=== PATIENT | male | born 1945 | race Caucasian/White ===

== ENCOUNTER 2016-12-15 12:21 | Observation (INO) | payer OTHER, BC ==
--- NOTE | 2016-12-15 12:29 | CPEKG ---
Heart Rate: 92 RR Interval: 652 P-R Interval: 168 QRSD Interval: 96 QT Interval: 364 QTC Interval: 451 P [place]: 15 QRS [place]: 19 T Wave [place]: 51 EKG Severity - BORDERLINE ECG - EKG Impression: SINUS RHYTHM EKG Impression: BORDERLINE T WAVE ABNORMALITIES Electronically Signed By: Jenn Garcia 15-Dec-2016 13:35:25
[2016-12-15] MEDS ORDERED: ASPIRIN 81 MG CHEWABLE TAB PO ONE (12:55)
--- NOTE | 2016-12-15 12:58 | UCPHY ---
H & P Patient Type: New Chief Complaint Nursing Narrative: Pt. states left arm numbness/tingling intermittently since yesterday. C/O left ant cp today x2 episodes that feel like "pin prick or sharp" Denies pain currently, n/v/ or SOB. Time Seen by Provider: 12/15/16 12:55 HPI/ROS: CHIEF COMPLAINT: Chest History by patient HISTORY OF PRESENT ILLNESS: 71-year-old male with a history of hypertension and high cholesterol presents complaining of intermittent stabbing sharp chest pains radiating from the inside of his LEs chest outward which last less than a minute but also in association with left arm numbness. The symptoms have been going on for the last few days. They are nonexertional. It is not associated with any nausea, vomiting diaphoresis or shortness of breath. He denies any new leg pain or swelling. He has never had anything like this before. Patient was also worried about his blood pressure and he noticed today when he tried to take it with his home blood pressure cuff it says he had an irregular heart rate. He did not have any associated palpitations and his heart rate did not feel irregular to him. He brings with him a record of recent blood pressures that are all within normal limits with the highest being a systolic of 132. REVIEW OF SYSTEMS: As in HPI, and all other systems reviewed and are negative Source: Patient - Medical/Surgical History Hx Asthma: No Hx Chronic Respiratory Disease: No Hx Diabetes: No Hx Cardiac Disease: No Hx Renal Disease: No Hx Cirrhosis: No Hx Alcoholism: No Hx HIV/AIDS: No Hx Splenectomy or Spleen Trauma: No Other PMH: Med hx- Tachycardia?,cholesterol,htn. Surg-vasectomy - Family History Significant Family History: No pertinent family hx - Social History Smoking Status: Never smoked - Physical Exam Exam: General Appearance: Alert, [ ]. Eyes: Pupils equal and round no pallor or injection. ENT, Mouth: Mucous membranes moist. Respiratory: Normal, effort, There are no retractions, lungs are clear to auscultation. Cardiovascular: Regular rate and rhythm. Gastrointestinal: Abdomen is soft and nontender, no masses, bowel sounds normal. Neurological: Awake, alert and oriented x 3, no pronator drift, normal gait, no pronator drift Skin: Warm and dry, no rashes. Musculoskeletal: Neck is supple nontender. Extremities are symmetrical, full range of motion. There is trace pretibial pitting edema Psychiatric: Patient has normal affect, there is no agitation. Constitutional: Initial Vital Signs Temperature (C) 36.5 C 12/15/16 12:25 Heart Rate 89 12/15/16 12:25 Respiratory Rate 16 12/15/16 12:25 Blood Pressure 159/96 H 12/15/16 12:25 O2 Sat (%) 95 12/15/16 12:25 O2 Delivery Mode Room Air O2 (L/minute) 2 Allergies/Adverse Reactions: No Known Allergies Allergy (Verified 12/15/16 12:34) Home Medications: Medication Instructions Recorded Aspirin 81mg 03/07/10 HYDROCHLOROTHIAZIDE 03/07/10 Ramipril 03/07/10 Simvastatin 03/07/10 Medical Decision Making - Diagnostics EKG Interpretation: Normal sinus rhythm at a rate of 92 with normal axis, normal intervals and nonspecific T-wave flattening in the inferior lateral leads. There is no old EKG available for comparison. Impression: Abnormal EKG Imaging: I viewed and interpreted images myself ED Course/Re-evaluation: 71-year-old male with multiple cardiac risk factors presents with atypical chest pain and left arm numbness. ECG is abnormal although there is no evidence of acute GA or ischemia. First troponin is negative. Chest x-ray shows nothing acute. Patient was given aspirin in the emergency department. Although there is no evidence for acute GA, Given that his heart score is 4 and we cannot exclude cardiac causes the source of his symptoms, we will transfer him to [facility] for further evaluation and treatment. I discussed the case with Dr. Romero, the hospitalist professional poker player. - Data Points Laboratory Results: Laboratory Results 12/15/16 12:50 12/15/16 12:50 12/15/16 12/15/16 12:50 12:50 WBC 7.18 10^3/uL 10^3/uL (3.80-9.50) RBC 4.86 10^6/uL 10^6/uL (4.40-6.38) Hgb 15.7 g/dL g/dL (13.7-17.5) Hct 44.9 % % (40.0-51.0) MCV 92.4 fL fL (81.5-99.8) MCH 32.3 pg pg (27.9-34.1) MCHC 35.0 g/dL g/dL (32.4-36.7) RDW 13.3 % % (11.5-15.2) Plt Count 205 10^3/uL 10^3/uL (150-400) MPV 10.6 fL fL (8.7-11.7) Neut % (Auto) 69.8 % % (39.3-74.2) Lymph % (Auto) 17.8 % % (15.0-45.0) Kings % (Auto) 9.5 % % (4.5-13.0) Eos % (Auto) 1.5 % % (0.6-7.6) Baso % (Auto) 0.8 % % (0.3-1.7) Nucleat RBC Rel Count 0.0 % % (0.0-0.2) Absolute Neuts (auto) 5.01 10^3/uL 10^3/uL (1.70-6.50) Absolute Lymphs (auto) 1.28 10^3/uL 10^3/uL (1.00-3.00) Absolute Monos (auto) 0.68 10^3/uL 10^3/uL (0.30-0.80) Absolute Eos (auto) 0.11 10^3/uL 10^3/uL (0.03-0.40) Absolute Basos (auto) 0.06 10^3/uL 10^3/uL (0.02-0.10) Absolute Nucleated RBC 0.00 10^3/uL 10^3/uL (0-0.01) Immature Gran % 0.6 % % (0.0-1.1) Immature Gran # 0.04 10^3/uL 10^3/uL (0.00-0.10) Sodium 142 mEq/L mEq/L (134-144) Potassium 4.2 mEq/L mEq/L (3.5-5.2) Chloride 103 mEq/L mEq/L (97-110) Carbon Dioxide 24 mEq/l mEq/l (22-31) Anion Gap 15 mEq/L mEq/L (8-16) BUN 14 mg/dL mg/dL (7-23) Creatinine 0.8 mg/dL mg/dL (0.7-1.3) Estimated GFR > 60 Glucose 99 mg/dL mg/dL (70-100) Calcium 9.5 mg/dL mg/dL (8.5-10.4) Troponin I 0.030 ng/mL ng/mL (0-0.034) Medications Given: Discontinued Medications Aspirin (Aspirin) 324 mg PO EDNOW ONE Stop: 12/15/16 12:56 Last Admin: 12/15/16 13:02 Dose: 324 mg Departure - Departure Disposition: [facility] Inpatient Acute Clinical Impression: Chest pain in adult Condition: Good Referrals: Norris Maxwell MD [Primary Care Provider] - As per Instructions - PQRS PQRS Measurement: 134: Depression screening and followup, PRIME MD-PHQ2 (12 years and older) Over the last 2 weeks, how often have you been bothered by any of the following problems? 1. Feeling down, depressed, or hopeless? 2. Little interest or pleasure in doing things? [Patient answered no to both 1 and 2] . 130: Documentation of medications. [Unable to obtain meds due to] [patient did not know]. 226: Do you smoke? [No.] 47: 65 and older: Advanced care planning. Patient designates surrogate decision maker as [parent] [spouse] . 51: 18 years old and older with diagnosis of COPD, spirometry performance. [Patient has no history of COPD] 52: 18 years old and older with COPD and symptoms of COPD or FEV1<60% predicted prescribed a B Agonist. [Spirometry not performed; equipment not available.]
[2016-12-15 13:00] LABS: % IMMATURE GRANULYOCYTES 0.6 % (0.0-1.1); ABSOLUTE IMMATURE GRANULOCYTES 0.04 10^3/uL (0.00-0.10); ADD DIFF? NO; ADD MORPH? NO; ADD SCAN? NO; ATYPICAL LYMPHOCYTE FLAG 0 (0-99); FRAGMENT RBC FLAG 0 (0-99); HEMATOCRIT 44.9 % (40.0-51.0); HEMOGLOBIN 15.7 g/dL (13.7-17.5); LEFT SHIFT FLG 0 (0-99); LIPEMIA HEMOLYSIS FLAG 90 (0-99); MEAN CELL HEMOGLOBIN 32.3 pg (27.9-34.1); MEAN CELL VOLUME 92.4 fL (81.5-99.8); MEAN PLATELET VOLUME 10.6 fL (8.7-11.7); PLATELET CLUMPS FLAG 0 (0-99); PLATELET COUNT 205 10^3/uL (150-400); RED BLOOD CELL COUNT 4.86 10^6/uL (4.40-6.38); RED CELL DISTRIBUTION WIDTH 13.3 % (11.5-15.2)
[2016-12-15 13:06] LABS: ANION GAP 15 mEq/L (8-16); CALCIUM 9.5 mg/dL (8.5-10.4); CARBON DIOXIDE 24 mEq/l (22-31); CHLORIDE 103 mEq/L (97-110); CREATININE 0.8 mg/dL (0.7-1.3); GLOMERULAR FILTRATION RATE > 60; GLUCOSE 99 mg/dL (70-100); POTASSIUM 4.2 mEq/L (3.5-5.2); SODIUM 142 mEq/L (134-144)
[2016-12-15] MEDS ORDERED: ACETAMINOPHEN 325 MG TAB PO PRN (14:38)
[2016-12-15] MEDS ORDERED: NITROGLYCERIN 0.4 MG BTL SL PRN (14:38)
--- NOTE | 2016-12-15 15:15 | PDGENHP ---
History and Physical - Chief Complaint Acute chest pain - History of Present Illness PCP: Dr. Maxwell 71-year-old male presents with acute chest pain characterized as sharp and stabbing, located in the anterior left chest with onset of symptoms on the day prior to this presentation and duration reported as less than 1 minute and intermittent since that time. He has also had associated left upper extremity paresthesias. He reports that he consistently sleeps on his side and he may have slept on his left side last night. The paresthesias in his hand were alleviated by ringing his left arm out. The constellation of the symptoms were him and led to his presentation. He has recently re-initiated his treadmill routine ambulating at approximately 3.5 mph and he reports that he checked his heart rate and blood pressure at home and his heart rate was notably fast around 110 with a systolic blood pressure of 132. He denies any chest pain or shortness of breath while on the treadmill. He presented to urgent care and he is currently chest pain-free. He has received a full-dose aspirin. History Information - Allergies/Home Medication List Allergies/Adverse Reactions: No Known Allergies Allergy (Verified 12/15/16 12:34) Home Medications: Aspirin [Aspirin 81mg (*)] 81 mg PO DAILY@16 12/15/16 [Last Taken 12/15/16] Hydrochlorothiazide [HCTZ (*)] 25 mg PO DAILY@16 12/15/16 [Last Taken 12/14/16] Ramipril [Altace 5mg (*)] 5 mg PO DAILY@16 12/15/16 [Last Taken 12/14/16] Simvastatin 40 mg PO HS 12/15/16 [Last Taken 12/14/16] I have personally reviewed and updated: family history, medical history, social history, surgical history - Past Medical History hypertension, hyperlipidemia - Surgical History Additional surgical history: Vasectomy - Social History Smoking Status: Never smoked Alcohol Use: Occasionally Drug Use: None Additional social history: Physically active at baseline, regularly uses a treadmill Review of Systems ROS: 10pt was reviewed & negative except for what was stated in HPI & below Cardiac: Reports: chest pain Neurological: Reports: paresthesia Physical Exam Temp Pulse Resp BP Pulse Ox 36.8 C 81 18 125/86 H 97 12/15/16 14:00 12/15/16 14:00 12/15/16 14:00 12/15/16 14:00 12/15/16 14:00 Constitutional: no apparent distress, appears nourished, not in pain Eyes: PERRL, anicteric sclera, EOMI Ears, Nose, Mouth, Throat: moist mucous membranes, hearing normal, ears appear normal, no oral mucosal ulcers Cardiovascular: regular rate and rhythym, no murmur, rub, or gallop, No edema Respiratory: no respiratory distress, no rales or rhonchi, clear to auscultation Gastrointestinal: normoactive bowel sounds, soft, non-tender abdomen, no palpable masses Musculoskeletal: other (No tenderness to palpation over the left pectoralis muscle, full range of motion left shoulder without any pain, no tenderness over the sub a.c. on the left, no tenderness over the left ribs) Neurologic: AAOx3, sensation intact bilaterally, No weakness Psychiatric: interacting appropriately, not anxious, not encephalopathic, thought process linear Lab Data & Imaging Review 12/15/16 12:50 12/15/16 12:50 WBC 7.18 10^3/uL (3.80-9.50) 12/15/16 12:50 RBC 4.86 10^6/uL (4.40-6.38) 12/15/16 12:50 Hgb 15.7 g/dL (13.7-17.5) 12/15/16 12:50 Hct 44.9 % (40.0-51.0) 12/15/16 12:50 MCV 92.4 fL (81.5-99.8) 12/15/16 12:50 MCH 32.3 pg (27.9-34.1) 12/15/16 12:50 MCHC 35.0 g/dL (32.4-36.7) 12/15/16 12:50 RDW 13.3 % (11.5-15.2) 12/15/16 12:50 Plt Count 205 10^3/uL (150-400) 12/15/16 12:50 MPV 10.6 fL (8.7-11.7) 12/15/16 12:50 Neut % (Auto) 69.8 % (39.3-74.2) 12/15/16 12:50 Lymph % (Auto) 17.8 % (15.0-45.0) 12/15/16 12:50 [place] % (Auto) 9.5 % (4.5-13.0) 12/15/16 12:50 Eos % (Auto) 1.5 % (0.6-7.6) 12/15/16 12:50 Baso % (Auto) 0.8 % (0.3-1.7) 12/15/16 12:50 Nucleat RBC Rel Count 0.0 % (0.0-0.2) 12/15/16 12:50 Absolute Neuts (auto) 5.01 10^3/uL (1.70-6.50) 12/15/16 12:50 Absolute Lymphs (auto) 1.28 10^3/uL (1.00-3.00) 12/15/16 12:50 Absolute Monos (auto) 0.68 10^3/uL (0.30-0.80) 12/15/16 12:50 Absolute Eos (auto) 0.11 10^3/uL (0.03-0.40) 12/15/16 12:50 Absolute Basos (auto) 0.06 10^3/uL (0.02-0.10) 12/15/16 12:50 Absolute Nucleated RBC 0.00 10^3/uL (0-0.01) 12/15/16 12:50 Immature Gran % 0.6 % (0.0-1.1) 12/15/16 12:50 Immature Gran # 0.04 10^3/uL (0.00-0.10) 12/15/16 12:50 D-Dimer < 0.27 ug/mLFEU (0.00-0.50) 12/15/16 12:20 Sodium 142 mEq/L (134-144) 12/15/16 12:50 Potassium 4.2 mEq/L (3.5-5.2) 12/15/16 12:50 Chloride 103 mEq/L (97-110) 12/15/16 12:50 Carbon Dioxide 24 mEq/l (22-31) 12/15/16 12:50 Anion Gap 15 mEq/L (8-16) 12/15/16 12:50 BUN 14 mg/dL (7-23) 12/15/16 12:50 Creatinine 0.8 mg/dL (0.7-1.3) 12/15/16 12:50 Estimated GFR > 60 12/15/16 12:50 Glucose 99 mg/dL (70-100) 12/15/16 12:50 Calcium 9.5 mg/dL (8.5-10.4) 12/15/16 12:50 Troponin I 0.030 ng/mL (0-0.034) 12/15/16 12:50 Visualized and Interpreted Chest x-ray results: Yes Chest X-Ray results: other (No focal airspace disease, possible small nodular infiltrate in the left mid) Visualized and Interpreted EKG results: Yes EKG Interpretation: Positive for: other (Normal sinus mechanism with Q-wave in lead 3 and flattening of the T-wave) Assessment & Plan Assessment: 71-year-old male presents with acute chest pain in the setting of hypertension and hyperlipidemia Plan: 1. Chest pain. Acute, new problem this provider, further workup indicated. Potential etiologies include acute coronary syndrome versus tachyarrhythmia versus atypical. Patient's additional history suggesting irregular heart rhythm at home makes the possibility of arrhythmia much more likely. -outside records reviewed and patient does not have previous presentations for chest pain in our system, most recent presentation was 10/23/2012 for apparent strep throat, treated by Jose Antonio Argueta -will monitor on telemetry overnight and if no a arrhythmias, recommend ordering patient for an outpatient event monitor -cycle cardiac enzymes -get treadmill EKG stress test in a.m. -continue empiric full-dose aspirin -sublingual nitroglycerin as needed if chest pain recurs, get stat EKG at that time -if all the above unremarkable, recommend trial of GERD medications and short- term follow-up with PCP (patient reports he has had GERD-similar sx in past) 2. Hypertension. Systolic blood pressure moderately elevated on presentation, most likely secondary to stress and recent pain, continue home medications and monitor -will check lipid and A1c Diet. Cardiac, NPO after midnight Prophylaxis. Moderate risk patient but ambulatory, SCDs Code. Full Disposition. Anticipated discharge is 12/16/2016, pending further workup as outlined above. Discussed patient's presentation with Dr. Jenn Garcia at urgent care, we both agree that the patient is appropriate for the [facility].
[2016-12-15] MEDS ORDERED: HYDROCHLOROTHIAZIDE 25 MG TAB PO SCH (16:00)
[2016-12-15] MEDS ORDERED: RAMIPRIL 5 MG CAP PO SCH (16:00)
[2016-12-15] MEDS ORDERED: ATORVASTATIN CALCIUM 20 MG TAB PO SCH (21:00)
[2016-12-15] MEDS ORDERED: NON-FORMULARY NEW DRUG (Simvastatin [Simvastatin] 40 MG) PO SCH (21:00)
[2016-12-16 06:04] LABS: % IMMATURE GRANULYOCYTES 0.4 % (0.0-1.1); ABSOLUTE IMMATURE GRANULOCYTES 0.02 10^3/uL (0.00-0.10); ADD DIFF? NO; ADD MORPH? NO; ADD SCAN? NO; ATYPICAL LYMPHOCYTE FLAG 0 (0-99); FRAGMENT RBC FLAG 0 (0-99); HEMATOCRIT 43.6 % (40.0-51.0); LEFT SHIFT FLG 0 (0-99); LIPEMIA HEMOLYSIS FLAG 90 (0-99); MEAN CELL HEMOGLOBIN 32.3 pg (27.9-34.1); MEAN CELL HEMOGLOBIN CONCENTR. 34.4 g/dL (32.4-36.7); PLATELET CLUMPS FLAG 10 (0-99); PLATELET COUNT 202 10^3/uL (150-400); RED BLOOD CELL COUNT 4.64 10^6/uL (4.40-6.38); RED CELL DISTRIBUTION WIDTH 13.5 % (11.5-15.2)
[2016-12-16 06:14] LABS: CHOLESTEROL 123 mg/dL (140-220); CHOLESTEROL/HDL RATIO 2.56 RATIO (1.00-4.97); HIGH DENSITY LIPOPROTEIN 48 mg/dL (40-65); LDL/HDL RATIO 1.08 RATIO (1.00-3.64); LOW DENSITY LIPOPROTEIN 52 mg/dL (80-100); NON-HIGH DENSITY LIPOPROTEIN 75 mg/dL (90-129); TRIGLYCERIDE 118 mg/dL (40-150); VERY LOW DENSITY LIPOPROTEINS 23 mg/dL (8-25)
[2016-12-16 06:26] LABS: TROPONIN I 0.034 ng/mL (0-0.034)
[2016-12-16 08:50] VITALS: RESP 18; TEMP 98.2; O2SAT 93
[2016-12-16] MEDS ORDERED: ASPIRIN 325 MG TAB PO SCH (09:00)
--- NOTE | 2016-12-16 09:21 | HOSPPROG ---
Hospitalist Progress Note Assessment/Plan: #Acute chest pain: none today. Tread stress pending. Negative dimer #HLD-statin #Benign HTN: cont home meds #Disp: DC if negative stress test Subjective: no CP or SOB Objective: Vital Signs Temp Pulse Resp BP Pulse Ox 36.8 C 73 18 138/87 H 93 12/16/16 08:00 12/16/16 08:00 12/16/16 08:00 12/16/16 08:00 12/16/16 08:00 Laboratory Results 12/16/16 06:00 - Physical Exam Constitutional: no apparent distress Ears, Nose, Mouth, Throat: moist mucous membranes Cardiovascular: regular rate and rhythym, edema (no LE edema) Respiratory: no respiratory distress Gastrointestinal: normoactive bowel sounds, soft, non-tender abdomen Genitourinary: no bladder fullness Skin: warm Musculoskeletal: full muscle strength Neurologic: AAOx3 Psychiatric: interacting appropriately ICD10 Worksheet Patient Problems: Problems Problem Status Onset Chest pain in adult Acute
[2016-12-16 12:55] VITALS: BP 112/76; PULSE 76
--- NOTE | 2016-12-16 13:15 | GDS ---
[f rep st] DISCHARGE SUMMARY DISCHARGE DIAGNOSES: 1. Atypical chest pain. 2. Benign hypertension. 3. Hyperlipidemia. PROCEDURES: Exercise treadmill. No evidence of ischemia. HISTORY OF PRESENT ILLNESS: Patient is a 71-year-old male who presented with acute chest pain characterized as sharp and stabbing, located in the anterior left chest with onset of symptoms the day prior to admission. He said the pain lasted only 1 minute, and then has occurred intermittently since that time. He also reports having left arm numbness along with this pain. He does sleep on that side and thinks maybe he could have slept on it last night. He had just re -initiated his treadmill exercise, walking at 3.5 miles an hour, and noted his heart rate at home was elevated to 110 to 120s. He presented to urgent care yesterday, and was chest pain free at that time. HOSPITAL COURSE BY PROBLEM: 1. Atypical chest pain: Differential included musculoskeletal, anxiety, gastroesophageal reflux disease, ACS, or PE. D-dimer was negative. Patient had a negative troponin and EKG, and underwent exercise treadmill that was negative. 2. Benign hypertension: Resume home medications. 3. Hyperlipidemia: Statin. DISPOSITION: Patient is stable for discharge. Follow up with his PCP, Dr. Maxwell. /[id number]/MODL MTDD
[2016-12-17 01:46] LABS: HEMOGLOBIN A1C 6.1 % (4.0-6.0)
== END 2016-12-16 13:15 | disposition home or self-care (01) ==
LOC: CED 12:21 → CEDHOLD 14:49 → F1N 15:48
PROVIDERS: ADMIT Internal Medicine; ATTEND Internal Medicine
DX: R07.9 Chest pain, unspecified (principal); R20.2 Paresthesia of skin; I10 Essential (primary) hypertension; E78.5 Hyperlipidemia, unspecified
CPT/HCPCS: 71020; 93005; 93017; G0378; G0463; 80048-PO; 84484-PO; 85025-PO; 85378-PO